=== PATIENT | female | born 1970 | race Caucasian/White ===

== ENCOUNTER → 2018-03-22 12:19 | Outpatient (CLI) | payer OTHER, SELFPAY ==
--- NOTE | 2018-03-22 12:23 | BI_ITS ---
MAMMOGRAPHY - BILATERAL SCREENING REASON FOR EXAM: Female, 47 years old. Routine annual screening examination. PERTINENT HISTORY: Non-contributory. TECHNIQUE: Digital bilateral breast samantha (3D mammographic acquisition) in the CC and MLO projections. 2-D mediolateral oblique (MLO) and craniocaudad (CC) views of both breasts were obtained. CAD: Full Field Digital Mammography with Computer Added Detection was performed. COMPARISON: Comparison made with prior study dated March 20, 2017. FINDINGS: Breast Composition: There are scattered areas of fibroglandular density. There are no dominant masses or suspicious calcifications. No other significant abnormalities are identified. There has been no significant change since the prior study. BI/SCREENING MAMM (CAD), BILAT IMPRESSION: Stable bilateral screening mammogram. Yearly follow-up mammogram recommended. (A) ASSESSMENT CATEGORY: BIRADS Category 1: Negative. A letter regarding these results will be sent to the patient by the facility within 30 days. Approximately 10% of breast cancers are not detected by mammography. A normal mammogram should not delay biopsy of a clinically suspicious abnormality. [id number] Electronically Signed: Manav Acosta MD at 14:01 EDT Tel [phone], Service support ,
== END ==
PROVIDERS: Family Provider Family Medicine; PCP Family Medicine; Visit Provider Obstetrics & Gynecology
DX: Z12.31 Encounter for screening mammogram for malignant neoplasm of breast (principal)
CPT/HCPCS: 77063; 77067

== ENCOUNTER → 2018-04-07 10:46 | Outpatient (CLI) | payer OTHER, SELFPAY ==
[2018-04-13 10:31] LABS: HPV Reflexed? NOT INDICATED
== END ==
PROVIDERS: Visit Provider Obstetrics & Gynecology
DX: Z12.4 Encounter for screening for malignant neoplasm of cervix (principal)
CPT/HCPCS: 88175; G0145

== ENCOUNTER → 2019-04-08 10:38 | Outpatient (CLI) | payer OTHER, SELFPAY ==
[2019-04-14 14:09] LABS: HPV APTIMA, High Risk Negative (Negative)
== END ==
PROVIDERS: Visit Provider Obstetrics & Gynecology
DX: Z12.4 Encounter for screening for malignant neoplasm of cervix (principal)
CPT/HCPCS: 87624; 88175; G0145

== ENCOUNTER → 2019-04-13 13:11 | Outpatient (CLI) | payer OTHER, SELFPAY ==
--- NOTE | 2019-04-13 13:13 | BI_ITS ---
MAMMOGRAPHY - BILATERAL SCREENING 3-D TOMOSYNTHESIS REASON FOR EXAM: Female, 48 years old. Bilateral Screening 3-D tomosynthesis PERTINENT HISTORY: No significant family history. TECHNIQUE: 2-D mammograms and 3-D Tomosynthesis of the breast (s) were performed. CAD was performed. COMPARISON: 03/22/2018, 03/20/2017, 03/12/2015. FINDINGS: The breast composition is composed of scattered fibroglandular density. Scattered benign calcifications are seen. No dense spiculated masses or suspicious microcalcifications are identified. No architectural distortion is identified. There is no skin thickening or retraction. There has been no significant change since the prior study. BI/SCREEN MAMM (CAD) W/SHARON BILAT IMPRESSION: No mammographic signs of malignancy. Routine yearly mammograms recommended. ASSESSMENT CATEGORY: BIRADS Category 2: Benign. A letter regarding these results will be sent to the patient by the facility within 30 days. FOLLOW UP RECOMMENDATION: Yearly follow up mammogram recommended. (A) Approximately 10% of breast cancers are not detected by mammography. A normal mammogram should not delay biopsy of a clinically suspicious abnormality. Electronically Signed: Gunner Hua MD at 16:26 EDT Tel [phone], Service support ,
== END ==
PROVIDERS: Family Provider Family Medicine; PCP Family Medicine; Referring Provider Obstetrics & Gynecology; Visit Provider Obstetrics & Gynecology
DX: Z12.31 Encounter for screening mammogram for malignant neoplasm of breast (principal)
CPT/HCPCS: 77063; 77067

== ENCOUNTER 2019-06-27 07:37 | Day surgery (SDC) | payer OTHER, SELFPAY ==
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
[2019-06-27 08:11] VITALS: BP 109/85; PULSE 67; RESP 16; TEMP 36.9; O2SAT 99; BMI 21.8
[2019-06-27] MEDS: Lactated Ringers 1,000 ML 100 ML IV (08:19)
[2019-06-27 09:29] VITALS: BP 109/85; BP 98/73; PULSE 80; RESP 16; TEMP 36.7; O2SAT 100
--- NOTE | 2019-06-27 09:33 | OP.ENDO_ITS ---
06/27/2019 Janice [address]ner [address] [place] [address] Re : Colonoscopy procedure for Lu Cavanaugh Dear Dr. Buckner This procedure was performed on Thursday, June 27, 2019. My impressions and recommendations are as follows: Impressions : - Hemorrhoids found on perianal exam. - External and internal hemorrhoids. - The entire examined colon is normal. - No specimens collected. Recommendations : - Discharge patient to home. - Resume previous diet. - Continue present medications. - Repeat colonoscopy in 10 years for screening purposes. My findings are described in the full procedure note, which is enclosed. If I can be of further assistance, please feel free to contact me at Doctor phone number(s): , Work: . Sincerely, MD Mara Victor MD 06/27/2019 9:33:10 AM This report has been signed electronically.
[2019-06-27 09:35] VITALS: BP 103/72; BP 109/85; PULSE 72; RESP 16; O2SAT 100
[2019-06-27 09:40] VITALS: BP 109/85; BP 88/69; PULSE 69; RESP 16; O2SAT 100
[2019-06-27 09:43] VITALS: BP 105/75; BP 109/85; PULSE 65; RESP 14; TEMP 36.6; O2SAT 100
[2019-06-27 10:01] VITALS: BP 109/85
== END 2019-06-27 10:09 | disposition home or self-care (01) ==
LOC: EN 07:39 → AC 07:40
PROVIDERS: Family Provider Family Medicine; PCP Family Medicine; Referring Provider Family Medicine; Visit Provider Surgery
PROC: 0DJD8ZZ Inspection of Lower Intestinal Tract, Via Natural or Artificial Opening Endoscopic (ICD-10-PCS; CPT 45378; principal; 2019-06-27 08:55)
DX: Z12.11 Encounter for screening for malignant neoplasm of colon (principal); K64.4 Residual hemorrhoidal skin tags; K64.0 First degree hemorrhoids
CPT/HCPCS: 45378; J7120; J2405

== ENCOUNTER → 2019-10-26 09:22 | Outpatient (CLI) | payer OTHER, SELFPAY ==
--- NOTE | 2019-10-26 09:27 | BD_ITS ---
STUDY: DUAL ENERGY X-RAY ABSORPTIOMETRY / DXA REASON FOR EXAM: Female, 48 years old. [employer]- EARLY AT 41 YRS OLD -- TAKES MULTIVITAMIN AND VIT D -- DOES MODERATE AMOUNT OF EXERCISE -- FAMILY HX OF OSTEO- MOTHER, AUNTS, COUSINS -- LANI OF 1.25 INCHES TECHNIQUE: Bone Mineral Density (BMD) measurements of lumbar spine and bilateral hips were obtained. COMPARISON: None. FINDINGS: Lumbar Spine (L1-L4): g/cm2 (1.000) / T-score (-1.5) / Z-score (-1.0) Findings are suggestive of osteopenia with a moderate fracture risk. Left Femur Total: g/cm2 (0.943) / T-score (-0.5) / Z-score (0.0) Left Femoral Neck: g/cm2 (0.931) / T-score (-0.8) / Z-score (0.1) Right Femur Total: g/cm2 (0.950) / T-score (-0.5) / Z-score (0.0) Right Femoral Neck: g/cm2 (0.907) / T-score (-0.9) / Z-score (-0.1) BD/Dexa Bone Density Study IMPRESSION: The patient is considered normal as outlined below according to World Manuel Organization (WHO) criteria with a low fracture risk. Reference Information: The T-score is the number of standard deviations above or below the standard which is normal for young adults at their peak bone mineral density. The World Health Organization (WHO) interprets the T-scores as follows: Above -1 Normal bone density Between -1 and -2.5 Osteopenia Equal to / or below -2.5 Osteoporosis As a practical clinical guideline, osteopenia may be graded as follows: Mild -1 through -1.5 Moderate -1.6 through -2.0 Severe -2.1 through -2.4 The Z-score is the number of standard deviations above or below age-matched controls. A Z-score of less than -1.5 would be considered abnormal. References: 1. NIH Osteoporosis and Related Bone Diseases http://www.osteo.org 2. International Society for Clinical Densitometry http://www.iscd.org 3. National Osteoporosis Foundation http://www.nof.org Electronically Signed: Manav Acosta, at 13:31 EST , Service support ,
== END ==
PROVIDERS: PCP Family Medicine; Referring Provider Obstetrics & Gynecology; Visit Provider Obstetrics & Gynecology
DX: Z13.820 Encounter for screening for osteoporosis (principal)
CPT/HCPCS: 77080

== ENCOUNTER → 2020-04-10 10:03 | Outpatient (CLI) | payer OTHER, SELFPAY ==
[2020-04-10 10:57] LABS: Hematocrit 37.7 % (37-47); Hemoglobin 12.4 g/dL (12.0-15.0); Mean Corp Hgb Conc 32.9 g/dL (32-36); Mean Corpuscular Volume 88.3 fL (81-99); Mean Platelet Vol. 9.9 fl (6.2-12.0); Platelet Count 282 K/mm3 (150-450); RBC Distribution Width CV 12.9 % (11.6-14.6); RBC Distribution Width SD 41.3 fl (35.1-43.9); Red Blood Count 4.27 M/mm3 (4.2-5.4); White Blood Count 5.3 K/mm3 (4.4-11.0)
[2020-04-10 11:34] LABS: Hemoglobin A1c 5.4 % (3.8-5.6)
[2020-04-10 11:38] LABS: ALB/GLOB Ratio 1.1 RATIO (0.9-2.4); AST(SGOT) 28 U/L (15-37); Alanine Aminotransfer ALT/SGPT 40 U/L (13-56); Albumin, Serum 3.9 g/dL (3.2-5.0); Alkaline Phosphatase 63 U/L (45-117); Anion Gap 3 (5-15); BUN 16 mg/dL (7-18); BUN/Creat Ratio 19.4 RATIO (10-20); Calcium,Total 8.8 mg/dL (8.5-10.1); Chloride 104 mmol/L (98-107); Cholesterol 218 mg/dL (200); Creatinine, Serum 0.83 mg/dL (0.55-1.02); EST Glomerular Filtration Rate 77 mL/min (>60); Est Glom Filt Rate - Afr Amer 94 mL/min (>60); Globulin 3.5 g/dL (2.2-4.2); Glucose 74 mg/dL (74-106); High Density Lipoprotein 59 mg/dL; Protein, Total 7.4 g/dL (6.4-8.2); Sodium Level 138 mmol/L (136-145); Thyroid Stim Hormone (TSH) 1.24 uIU/mL (0.358-3.74); Triglycerides 147 mg/dL; Very Low Density Lipoprotein 29 mg/dL (5-40)
== END ==
PROVIDERS: PCP Family Medicine; Visit Provider Obstetrics & Gynecology
DX: Z13.0 Encounter for screening for diseases of the blood and blood-forming organs and certain disorders involving the immune mechanism (principal); Z13.1 Encounter for screening for diabetes mellitus; Z13.220 Encounter for screening for lipoid disorders; Z12.4 Encounter for screening for malignant neoplasm of cervix
CPT/HCPCS: 36415; 80053; 80061; 83036; 84443; 85027

== ENCOUNTER → 2020-04-16 08:36 | Outpatient (CLI) | payer OTHER, SELFPAY ==
--- NOTE | 2020-04-16 08:37 | BI_ITS ---
MAMMOGRAPHY - BILATERAL SCREENING REASON FOR EXAM: Female, 49 years old. Routine annual screening examination. PERTINENT HISTORY: Non-contributory. TECHNIQUE: Digital bilateral breast sharon (3D mammographic acquisition) in the CC and MLO projections. 2-D mediolateral oblique (MLO) and craniocaudad (CC) views of both breasts were obtained. CAD: Full Field Digital Mammography with Computer Added Detection was performed. COMPARISON: Comparison is made with prior study dated 04/13/2019 and 03/22/2018. FINDINGS: Breast Composition: There are scattered areas of fibroglandular density. There are no dominant masses or suspicious calcifications. No other significant abnormalities are identified. There has been no significant change since the prior study. BI/SCREEN MAMM (CAD) W/SHARON BILAT IMPRESSION: Stable bilateral screening mammogram. Yearly follow-up mammogram recommended. (A) ASSESSMENT CATEGORY: BIRADS Category 1: Negative. A letter regarding these results will be sent to the patient by the facility within 30 days. Approximately 10% of breast cancers are not detected by mammography. A normal mammogram should not delay biopsy of a clinically suspicious abnormality. [id number] Electronically Signed: Manav Acosta, at 10:05 EDT , Service support ,
== END ==
PROVIDERS: PCP Family Medicine; Referring Provider Obstetrics & Gynecology; Visit Provider Obstetrics & Gynecology
DX: Z12.31 Encounter for screening mammogram for malignant neoplasm of breast (principal)
CPT/HCPCS: 77063; 77067

== ENCOUNTER → 2021-05-28 12:14 | Outpatient (CLI) | payer OTHER, SELFPAY ==
--- NOTE | 2021-05-28 12:18 | RAD_ITS ---
STUDY: X-RAY - LEFT TIBIA AND FIBULA REASON FOR EXAM: Female, 50 years old. TENDONITIS TECHNIQUE: 2 view(s) of the tibia and fibula were obtained. COMPARISON: None. FINDINGS: Normal visualized tibia. Normal visualized fibula. The soft tissue structures are unremarkable. RAD/Tibia & Fibula 2 Views IMPRESSION: Normal x-ray examination of the tibia and fibula. Electronically Signed: Elpidio Quiñonez MD ([place]) at 8:30 EDT , Service support ,
== END ==
PROVIDERS: PCP Family Medicine; Referring Provider Family Medicine; Visit Provider Family Medicine
DX: M65.262 Calcific tendinitis, left lower leg (principal)
CPT/HCPCS: 73590

== ENCOUNTER → 2021-05-31 08:29 | Outpatient (CLI) | payer OTHER, SELFPAY ==
--- NOTE | 2021-05-31 08:32 | BI_ITS ---
MAMMOGRAPHY - BILATERAL SCREENING 3-D TOMOSYNTHESIS REASON FOR EXAM: Female, 50 years old. SCREENING PERTINENT HISTORY: No significant family history. TECHNIQUE: 2-D mammograms and 3-D Tomosynthesis of the breast (s) were performed. CAD was performed. COMPARISON: 04/16/2020 FINDINGS: The breast composition is composed of scattered fibroglandular density. Scattered benign calcifications are seen. No dense spiculated masses or suspicious microcalcifications are identified. No architectural distortion is identified. There is no skin thickening or retraction. There has been no significant change since the prior study. BI/SCRN MAMM (CAD)W/SHARON BILAT IMPRESSION: No mammographic signs of malignancy. Routine yearly mammograms recommended. ASSESSMENT CATEGORY: BIRADS Category 1: Negative. A letter regarding these results will be sent to the patient by the facility within 30 days. FOLLOW UP RECOMMENDATION: Yearly follow up mammogram recommended. (A) Approximately 10% of breast cancers are not detected by mammography. A normal mammogram should not delay biopsy of a clinically suspicious abnormality. Electronically Signed: Drew Dean MD at 10:02 EDT Tel , Service support ,
== END ==
PROVIDERS: PCP Family Medicine; Referring Provider Obstetrics & Gynecology; Visit Provider Obstetrics & Gynecology
DX: Z12.31 Encounter for screening mammogram for malignant neoplasm of breast (principal)
CPT/HCPCS: 77063; 77067

== ENCOUNTER → 2021-06-02 | Outpatient (CLI) | payer OTHER, SELFPAY | END | disposition home or self-care (01) | PROVIDERS: PCP Family Medicine; Referring Provider Nurse Practitioner Family; Visit Provider Nurse Practitioner Family | DX: U07.1 COVID-19 (principal) | CPT/HCPCS: 87635; U0005; U0003 ==

== ENCOUNTER → 2022-10-13 | Outpatient (CLI) | payer OTHER, SELFPAY ==
--- NOTE | 2022-10-13 14:14 | RAD_ITS ---
STUDY: X-RAY - RIGHT SHOULDER REASON FOR EXAM: Female, 51 years old. Right shoulder and mid back pain after falling several months ago. TECHNIQUE: 4 view(s) of the shoulder. COMPARISON: None. FINDINGS: Normal glenohumeral articulation. Normal acromioclavicular joint. Normal acromion. There is no acute fracture, dislocation or destructive osseous pathology. Normal humeral head and visualized proximal humerus. The soft tissue structures are unremarkable. Normal visualized pulmonary apex. RAD/Shoulder min 2 Views IMPRESSION: Normal x-ray examination of the right shoulder. Electronically Signed: José Miguel Vann DO at 16:58 EST ,
--- NOTE | 2022-10-13 14:23 | RAD_ITS ---
INDICATION: fall/pain EXAMINATION/TECHNIQUE: X-RAY - XR Spine Thoracic 2 Views COMPARISON: Chest radiograph November 03, 2012 FINDINGS: VERTEBRAE: Preserved vertebral body height. No fracture. No spondylolisthesis. Preservation of the normal thoracic kyphosis. DISCS: Disc spaces are maintained. INCLUDED CHEST/ABDOMEN: No acute abnormalities. RAD/Thoracic Spine 2 Views IMPRESSION: No evidence of thoracic spinal fracture or spondylolisthesis. Electronically Signed: Maikol Rosario MD at 5:58 EST ,
== END | disposition home or self-care (01) ==
PROVIDERS: PCP Family Medicine; Referring Provider Nurse Practitioner Family; Visit Provider Nurse Practitioner Family
DX: M25.511 Pain in right shoulder (principal)
CPT/HCPCS: 72070; 73030

== ENCOUNTER 2022-11-18 14:46 | Outpatient (RCR) | payer OTHER, SELFPAY ==
--- NOTE | 2022-11-18 16:09 | HP.PTEVAL ---
Patient's Visit Information SHIVANI CLEAINNG is a 51 year old F referred to Physical Therapy by Dr. Janice Buckner MD with a diagnosis of RIGHT SHOULDER PAIN. Date of Evaluation: 11/18/22 Physical Therapist: Sohail Olivo PT, Cert MDT, OCS - Visit Plan Frequency: 1 VISIT Plan: PATIENT WAS PROVIDED WITH HEP AND PT EVAL ONLY - Subjective This 51 y/o female presents to physicals therapy for right shoulder pain. Patient has had shoulder pain 5 -6 months . Patient seen DR Buckner ,did x-rays - and recommended meloxicam. Patient located global . Aggravating activities lifting OH repetitive and ADLS . Alleviating factors mediation and rest. Pain affects sleep on right side. Patient denies paresthesia/tingling . Patient condition affects QOL and function. Patient had injury to right surgery many years. Patient had fall right side in January of last year. 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 SOCAIL: - Pain Right Shoulder Pain Intensity (Out of 10): 2 Pain Intensity Range: 10 - Objective POSTURE: mild forward posture. PALAPTION: unremarkable. NEURO: intact, denies paresthesia/tingling. AROM: shoulder flexion 160 degrees , 160 abduction ,ER 90 degrees ,IR L5. MMT: RTC 4/5 ,DELTOID 4/5 - Goals Goal 1:: Patient was provided with HEP for Right shoulder Goal Time Frame: 4-6 Weeks - Rehabilitation Potential Physical Therapy Diagnosis: Patient has right shoulder pain with functional activity above ADLS and housework task thus benefit from HEP Rehabilitation Potential: Good - Anticipated Interventions Patient/Client Instruction: Educate patient on: Condition, Plan of Care For the Purpose of:: To increase tolerance to activity/condition/position, To improve ability of physical actions for home/community/work/leisure, Other Other: HEP Therapeutic Exercise to Include: Strength training, Postural training, Scapular Strength/Stabilization Comment: RTC For the Purpose of:: To decrease pain, To increase ROM Thank you for the opportunity to evaluate your patient. For Medicare and Medicare HMO plans, please review the plan of care and approve it. It will need to be FAXED BACK to us at [phone] for Medicare purposes. For Medicare only, by signing this I certify the plan of care. Please let me know if there are questions or concerns regarding this plan of care. Physician Signature: Date:
--- NOTE | 2023-03-22 18:09 | HP.PT.NRP ---
Patient Information Patient Information: SHIVANI CLEANING was seen in my office for initial evaluation on 11/18/22. The following Plan of Care was established for this patient: POC Established Initial Frequency: 1 VISIT Anticipated Interventions Patient/Client Instruction: Educate patient on: Condition and Plan of Care For the Purpose of:: To increase tolerance to activity/condition/position, To improve ability of physical actions for home/community/work/leisure and Other Other: HEP Therapeutic Exercise to Include: Strength training, Postural training and Scapular Strength/Stabilization For the Purpose of:: To decrease pain and To increase ROM Last Seen Last Seen: This patient was last seen in our office . Pertinent comments regarding their Physical therapy will appear below: Patient was seen for initial Evaluation gómez and d/c to hep At this point I will be discontinuing this patient from physical therapy. I would be happy to see this patient again in the future if found appropriate by the physician. Thank you! Sohail Olivo, PT, Cert MDT, OCS
== END 2022-11-18 19:00 | disposition home or self-care (01) ==
LOC: PT 14:46
PROVIDERS: PCP Family Medicine; Referring Provider Family Medicine; Visit Provider Family Medicine
DX: M25.519 Pain in unspecified shoulder (principal)
CPT/HCPCS: 97110; 97161

== ENCOUNTER → 2023-04-03 | Outpatient (CLI) | payer OTHER, SELFPAY ==
[2023-04-03 10:28] LABS: Absolute Lymphocyte Count 1.17 X10^3/uL (0.83-4.51); Basophil# 0.06 X10^3/uL; Eosinophils% 1.7 % (0-5); Hematocrit 40.8 % (37-47); Hemoglobin 13.6 g/dL (12.0-15.0); Lymphocyte # 1.17 X10^3/ul (0.83-4.51); Lymphocyte % 19.7 % (19-41); Mean Corp Hgb Conc 33.3 g/dL (32-36); Mean Corpuscular Hgb 30.2 pg (27.0-32.0); Mean Corpuscular Volume 90.5 fL (81-99); Mean Platelet Vol. 9.2 fl (6.2-12.0); Monocyte# 0.58 X10^3/uL; Monocyte% 9.8 % (0-10); NRBC Flagged by Analyzer 0 % (0-5); Neutrophil # 4.02 X10^3/uL (2.7-7.7); Neutrophil % 67.6 % (47-70); Platelet Count 272 K/mm3 (150-450); RBC Distribution Width CV 11.9 % (11.6-14.6); RBC Distribution Width SD 39.6 fl (35.1-43.9); Red Blood Count 4.51 M/mm3 (4.2-5.4); White Blood Count 5.9 K/mm3 (4.4-11.0)
[2023-04-03 10:49] LABS: Hemoglobin A1c 5.3 % (3.8-5.6)
[2023-04-03 10:53] LABS: ALB/GLOB Ratio 1.1 RATIO (0.9-2.4); AST(SGOT) 25 U/L (15-37); Alanine Aminotransfer ALT/SGPT 31 U/L (13-56); Albumin, Serum 4.1 g/dL (3.2-5.0); Alkaline Phosphatase 76 U/L (45-117); Anion Gap 4 (5-15); BUN 13 mg/dL (7-18); BUN/Creat Ratio 15.8 RATIO (10-20); Calcium,Total 9.6 mg/dL (8.5-10.1); Chloride 104 mmol/L (98-107); Cholesterol 225 mg/dL (200); Creatinine, Serum 0.82 mg/dL (0.55-1.02); EST Glomerular Filtration Rate 77 mL/min (>60); Est Glom Filt Rate - Afr Amer 93 mL/min (>60); Globulin 3.7 g/dL (2.2-4.2); Glucose 84 mg/dL (74-106); High Density Lipoprotein 63 mg/dL; Potassium 3.9 mmol/L (3.5-5.1); Protein, Total 7.8 g/dL (6.4-8.2); Sodium Level 136 mmol/L (136-145); Thyroid Stim Hormone (TSH) 1.84 uIU/mL (0.358-3.74); Triglycerides 114 mg/dL; Very Low Density Lipoprotein 23 mg/dL (5-40)
[2023-04-08 17:07] LABS: HPV APTIMA, High Risk Negative (Negative)
== END | disposition home or self-care (01) ==
PROVIDERS: PCP Family Medicine; Referring Provider Obstetrics & Gynecology; Visit Provider Obstetrics & Gynecology
DX: Z12.4 Encounter for screening for malignant neoplasm of cervix (principal); Z13.220 Encounter for screening for lipoid disorders; Z13.29 Encounter for screening for other suspected endocrine disorder; Z13.0 Encounter for screening for diseases of the blood and blood-forming organs and certain disorders involving the immune mechanism; Z13.1 Encounter for screening for diabetes mellitus
CPT/HCPCS: 36415; 80053; 80061; 83036; 84443; 85025; 87624; 88175; G0145

== ENCOUNTER → 2023-04-08 | Outpatient (CLI) | payer OTHER, SELFPAY ==
--- NOTE | 2023-04-08 12:29 | BI_ITS ---
MAMMOGRAPHY - BILATERAL SCREENING REASON FOR EXAM: Female, 52 years old. Routine annual screening examination. PERTINENT HISTORY: Non-contributory. TECHNIQUE: Digital bilateral breast sharon (3D mammographic acquisition) in the CC and MLO projections. 2-D mediolateral oblique (MLO) and craniocaudad (CC) views of both breasts were obtained. CAD: Full Field Digital Mammography with Computer Added Detection was performed. COMPARISON: Comparison is made with prior studies May 31, 2021 and April 16, 2020. FINDINGS: Breast Composition: There are scattered areas of fibroglandular density. There are no dominant masses or suspicious calcifications. No other significant abnormalities are identified. There has been no significant change since the prior study. BI/SCRN MAMM (CAD)W/SHARON BILAT IMPRESSION: Stable bilateral screening mammogram. Yearly follow-up mammogram recommended. (A) ASSESSMENT CATEGORY: BIRADS Category 1: Negative. A letter regarding these results will be sent to the patient by the facility within 30 days. Approximately 10% of breast cancers are not detected by mammography. A normal mammogram should not delay biopsy of a clinically suspicious abnormality. [id number] Electronically Signed: Manav Acosta MD at 13:42 EDT ,
== END | disposition home or self-care (01) ==
LOC: OPBI 12:28
PROVIDERS: PCP Family Medicine; Referring Provider Obstetrics & Gynecology; Visit Provider Obstetrics & Gynecology
DX: Z12.31 Encounter for screening mammogram for malignant neoplasm of breast (principal)
CPT/HCPCS: 77063; 77067

== ENCOUNTER → 2023-09-10 | Outpatient (CLI) | payer OTHER, SELFPAY ==
[2023-09-10 13:04] LABS: Hepatitis B Surface Antibody Non-Reactive
[2023-09-11 06:09] LABS: V-Zoster IgG (Immunity) 2081 index (Immune >165); WCH EMP Rubeola Titer > 300.0 AU/mL (Immune >16.4)
== END | disposition home or self-care (01) ==
LOC: MFPLAB 10:54
PROVIDERS: PCP Family Medicine; Visit Provider Nurse Practitioner Family
DX: Z00.00 Encounter for general adult medical examination without abnormal findings (principal)
CPT/HCPCS: 36415; 86706; 86735; 86787

== ENCOUNTER → 2024-04-11 | Outpatient (CLI) | payer OTHER, SELFPAY ==
--- NOTE | 2024-04-11 08:16 | BI_ITS ---
MAMMOGRAPHY - BILATERAL SCREENING REASON FOR EXAM: Female, 53 years old. Routine annual screening examination. PERTINENT HISTORY: Non-contributory. TECHNIQUE: Digital bilateral breast sharon (3D mammographic acquisition) in the CC and MLO projections. 2-D mediolateral oblique (MLO) and craniocaudad (CC) views of both breasts were obtained. CAD: Full Field Digital Mammography with Computer Added Detection was performed. COMPARISON: Comparison is made with prior study April 08, 2023 and March 31, 2021. FINDINGS: Breast Composition: There are scattered areas of fibroglandular density. There are no dominant masses or suspicious calcifications. No other significant abnormalities are identified. There has been no significant change since the prior study. BI/SCRN MAMM (CAD)W/SHARON BILAT IMPRESSION: Stable bilateral screening mammogram. Yearly follow-up mammogram recommended. (A) ASSESSMENT CATEGORY: BIRADS Category 1: Negative. A letter regarding these results will be sent to the patient by the facility within 30 days. Approximately 10% of breast cancers are not detected by mammography. A normal mammogram should not delay biopsy of a clinically suspicious abnormality. [id number] Electronically Signed: Manav Acosta MD at 9:30 EDT ,
== END | disposition home or self-care (01) ==
LOC: OPBI 08:16
PROVIDERS: PCP Family Medicine; Referring Provider Obstetrics & Gynecology; Visit Provider Obstetrics & Gynecology
DX: Z12.31 Encounter for screening mammogram for malignant neoplasm of breast (principal)
CPT/HCPCS: 77063; 77067

== ENCOUNTER → 2024-05-10 | Outpatient (CLI) | payer OTHER, SELFPAY ==
[2024-05-10 11:37] LABS: Hemoglobin A1c 5.4 % (3.8-5.6)
[2024-05-10 11:52] LABS: Vitamin D,25 Hydroxy 30.9 ng/mL
[2024-05-10 11:58] LABS: Cholesterol 268 mg/dL (200); High Density Lipoprotein 82 mg/dL; Triglycerides 114 mg/dL; Very Low Density Lipoprotein 23 mg/dL (5-40)
== END | disposition home or self-care (01) ==
LOC: LAB 10:41
PROVIDERS: PCP Family Medicine; Referring Provider Obstetrics & Gynecology; Visit Provider Obstetrics & Gynecology
DX: Z13.1 Encounter for screening for diabetes mellitus (principal); Z13.220 Encounter for screening for lipoid disorders; Z13.21 Encounter for screening for nutritional disorder; Z13.29 Encounter for screening for other suspected endocrine disorder
CPT/HCPCS: 36415; 80061; 82306; 83036; 84443

== ENCOUNTER → 2024-05-13 | Outpatient (CLI) | payer OTHER, SELFPAY ==
[2024-05-13 08:50] LABS: T4 Free Direct 0.79 ng/dL (0.76-1.46)
--- NOTE | 2024-05-13 16:22 | US_ITS ---
STUDY: THYROID ULTRASOUND REASON FOR EXAM: Female, 53 years old. high TSH TECHNIQUE: Ultrasound evaluation of the thyroid was performed with real-time and static curran-scale imaging. COMPARISON: None. FINDINGS: RIGHT LOBE: The right lobe of the thyroid gland measures 4.1 x 1.2 x 1.4 cm. There is a heterogeneous echotexture. There are no demonstrated solid, cystic or complex lesions. LEFT LOBE: The left lobe of the thyroid gland measures 5.0 x 1.3 x 1.1 cm. There is a heterogeneous echotexture. Nodule 1:8 x 6 x 6 mm solid isoechoic wider than tall smoothly marginated nodule with no echogenic foci (TR 3) in the mid left lobe consistent with an adenoma. Nodule 2:7 x 6 x 5 mm solid isoechoic wider than tall ill-defined margin nodule with no echogenic foci (TR 3) in the inferior left lobe consistent with an adenoma. ISTHMUS: The isthmus measures 2 mm thick. . The regional lymph nodes are normal. US/Thyroid IMPRESSION: Thyroiditis with small adenomas. Electronically Signed: Drew Dean MD at 20:02 EDT ,
== END | disposition home or self-care (01) ==
PROVIDERS: PCP Family Medicine; Referring Provider Obstetrics & Gynecology; Visit Provider Obstetrics & Gynecology
DX: R94.6 Abnormal results of thyroid function studies (principal)
CPT/HCPCS: 36415; 76536; 84439

== ENCOUNTER → 2024-06-21 | Outpatient (CLI) | payer OTHER, SELFPAY ==
[2024-06-21 15:08] LABS: T4 Total, Thyroxin 9.9 ug/dL (4.8-13.9)
[2024-06-23 04:08] LABS: Thyroid Peroxidase AB 135 IU/mL (0-34)
== END | disposition home or self-care (01) ==
LOC: LAB 14:02
PROVIDERS: PCP Family Medicine; Referring Provider Surgery; Visit Provider Surgery
DX: E04.1 Nontoxic single thyroid nodule (principal); D34 Benign neoplasm of thyroid gland
CPT/HCPCS: 36415; 84436; 84443; 84481; 86376

== ENCOUNTER → 2024-07-19 | Outpatient (CLI) | payer OTHER, SELFPAY ==
--- NOTE | 2024-07-19 10:14 | RAD_ITS ---
STUDY: X-RAY - LEFT SHOULDER REASON FOR EXAM: Female, 53 years old. pain, fall TECHNIQUE: 4 view(s) of the shoulder. COMPARISON: October 13 2022 left shoulder FINDINGS: Normal glenohumeral articulation. Normal acromioclavicular joint. Normal acromion. Normal humeral head and visualized proximal humerus. The soft tissue structures are unremarkable. Normal visualized pulmonary apex. RAD/Shoulder min 2 Views IMPRESSION: Normal x-ray examination of the shoulder. Electronically Signed: Sea Montano MD at 0:25 EST ,
--- NOTE | 2024-07-19 10:14 | RAD_ITS ---
STUDY: X-RAY - UNILATERAL RIBS ( LEFT ) REASON FOR EXAM: Female, 53 years old. pain TECHNIQUE: 4 view(s) of the ribs. COMPARISON: None. FINDINGS: Normal visualized ribs without a demonstrated fracture. The visualized lung is clear and expanded. RAD/Ribs Unil 2V No CXR IMPRESSION: Normal x-ray examination of the ribs. Electronically Signed: Sea Montano MD at 0:30 EST ,
--- NOTE | 2024-07-19 10:36 | RAD_ITS ---
STUDY: X-RAY CHEST REASON FOR EXAM: Female, 53 years old. fall left side chest pain TECHNIQUE: Frontal and lateral views of the chest. COMPARISON: November 03, 2012 FINDINGS: Lungs are hyperaerated. Right lower lobe infiltrate. There is no demonstrated pleural abnormality. Normal size heart. Normal mediastinum and carlee. Normal visualized pulmonary arteries. Normal visualized aortic arch and descending thoracic aorta. Normal visualized thoracic spine. Normal visualized ribs, clavicles, and shoulders. There is no demonstrated abnormality of the visualized soft tissue structures of the upper abdomen. RAD/Chest PA and Lateral IMPRESSION: Right lower lobe infiltrate. COPD. Electronically Signed: Sea Montano MD at 0:27 EST ,
== END | disposition home or self-care (01) ==
LOC: MTRAD 10:14
PROVIDERS: PCP Family Medicine; Referring Provider Family Medicine; Visit Provider Family Medicine
DX: M79.602 Pain in left arm (principal); R07.81 Pleurodynia; R07.89 Other chest pain; W19.XXXA Unspecified fall, initial encounter
CPT/HCPCS: 71046; 71100; 73030

== ENCOUNTER → 2024-08-01 | Outpatient (CLI) | payer OTHER, SELFPAY ==
--- NOTE | 2024-08-01 09:54 | RAD_ITS ---
EXAM: XR CHEST, 2 VIEWS CLINICAL INDICATION: RLL infiltrate TECHNIQUE: Frontal and lateral views of the chest. COMPARISON: 07/19/2024 FINDINGS: LUNGS AND PLEURAL SPACES: Unremarkable. No consolidation or edema. No pneumothorax. No effusion. HEART: Unremarkable. Cardiac silhouette not enlarged. MEDIASTINUM: Central airways and mediastinal contour are unremarkable. BONES/JOINTS: Unremarkable. No acute fracture. SOFT TISSUES: Unremarkable. RAD/Chest PA and Lateral IMPRESSION: No radiographic evidence of acute cardiopulmonary disease. Electronically Signed: Saturnino Villegas MD at 18:42 EST ,
== END | disposition home or self-care (01) ==
LOC: MTRAD 09:54
PROVIDERS: PCP Family Medicine; Referring Provider Family Medicine; Visit Provider Family Medicine
DX: J98.4 Other disorders of lung (principal)
CPT/HCPCS: 71046

== ENCOUNTER → 2025-01-19 | Outpatient (CLI) | payer OTHER, SELFPAY ==
[2025-01-20 18:08] LABS: Thyroglobulin Antibody 1.7 IU/mL (0.0-0.9); Thyroid Peroxidase AB 10 IU/mL (0-34)
== END | disposition home or self-care (01) ==
LOC: LAB 12:05
PROVIDERS: PCP Family Medicine; Referring Provider Surgery; Visit Provider Surgery
DX: E04.1 Nontoxic single thyroid nodule (principal)
CPT/HCPCS: 36415; 84439; 84443; 84481; 86376; 86800

== ENCOUNTER → 2025-05-08 | Outpatient (CLI) | payer OTHER, SELFPAY ==
--- NOTE | 2025-05-08 12:00 | BI_ITS ---
EXAM: SCRN MAMM (CAD)W/SHARON BILAT DATE: 05/08/2025 CLINICAL HISTORY: F, Age 54 y/o , BREAST CANCER SCREENING TECHNIQUE: Procedure Code: [id number] Modality: MG Procedure: SCRN MAMM (CAD)W/SHARON BILAT COMPARISON: Prior exam(s) dated 04/11/2024 and 04/08/2023. FINDINGS: TISSUE DENSITY: There are scattered areas of fibroglandular density. Bilateral Breast Mammographic Findings: No significant masses, calcifications or other abnormalities are identified. Benign-appearing round microcalcifications are seen in both breasts. BI/SCRN MAMM (CAD)W/SHARON BILAT IMPRESSION: OVERALL FINAL ASSESSMENT BI-RADS 2: BENIGN RECOMMENDATION: Routine annual follow-up in 1 Year A letter with findings and recommendations will be mailed to the patient. Reading Location: [id number]
--- OUTSIDE RECORDS SUMMARY | 2025-05-08 22:14 | XMS RPT_ITS | CCD ---
Author Organization [facility] Care Team Providers Care Pairer Substandard Name Role Phone Dr. Janice Buckner Primary Care Provider [phone] Dr. Janice Buckner Referring Provider Dr. Ami Araya Attending Provider Sita BOND, Dr. Janice Santizo Primary Care Provider [phone] Opal BOND, Dr. Maldonado Attending Provider Opal BOND, Dr. Maldonado Referring Provider Ami Araya Attending Unavailable Ami Araya Referring Unavailable Jolliff, Janice S Primary Care Unavailable Joel Joseph Referring Unavailable Jolliff, Janice S Primary Care Unavailable Joel Joseph Attending Unavailable Opal, Joel Attending Unavailable Jolliff, Janice S Primary Care Unavailable Jolliff, Janice S Referring Unavailable Jolliff, Janice S Primary Care Unavailable Jolliff, Janice S Attending Unavailable Jolliff, Janice S Referring Unavailable Jolliff, Janice S Primary Care Unavailable Jolliff, Janice S Attending Unavailable Jolliff, Janice S Referring Unavailable Ami Araya Attending Unavailable Ami Araya Referring Unavailable Joel Joseph Attending Unavailable Zeinalliff, Janice S Primary Care Unavailable Joel Joseph Referring Unavailable Ami Araya Attending Unavailable Ami Araya Referring Unavailable Jolliff, Janice S Primary Care Unavailable Allergies Allergy Classification Reported Allergen(s) Allergy Type Date of Onset Reaction(s) Facility (5 sources) Latex Allergy to substance 06-27-2019 Rash [facility] (1 source) Latex Drug allergy (disorder) 06-07-2024 [facility] Repository Medications Current Medications Medication Drug Class(es) Dates Sig (Normalized) Sig (Original) [id number] 200 actuat albuterol 0.09 mg/actuat metered dose inhaler (1 source) beta2-Adrenergic Agonist Start: 06-21-2024 Albuterol Sulfate 90 mcg/actuation HFA aerosol inhaler Active INHALATION June 21, 2024 12:00am mecobalamin (1 source) Start: 05-03-2024 Mecobalamin (Vitamin B12) 500 mcg tablet,chewable Active ug PO DAILY as needed May 03, 2024 12:00am Vit U-K3-Fakvxhnsukbyx- Vit K 2,000 unit- 2,000 mcg/mL liquid (1 source) Start: 05-03-2024 take 1 mL by mouth once daily Vit E-Q2-Hmxeqljkjsqct -Vit K 2,000 unit- 2,000 mcg/mL liquid Active 0.5 mL PO daily May 03, 2024 12:00am Completed/Discontinued Medications Medication Drug Class(es) Dates Sig (Normalized) Sig (Original) spironolactone 50 mg oral tablet (16 sources) Aldosterone Antagonist Start: 06-23-2019 End: 05-03-2024 take 1 tablet by mouth once daily Spironolactone 50 mg tablet Discontinued 0 .ROUTE .COMPLEX April 29, 2023 1:40pm May 03, 2024 1:23pm TAKE 1 TABLET BY MOUTH EVERY DAY Start: 06-23-2019 End: 04-03-2023 take 2 tablets by mouth once daily Spironolactone 50 MG tablet Discontinued 100 mg PO DAILY June 23, 2019 12:00am April 03, 2023 9:08am Start: 06-23-2019 End: 04-03-2023 take 100 mg by mouth once daily Spironolactone Discontinued 100 MG PO DAILY June 22, 2019 11:00pm April 03, 2023 8:08am Problems Active Problems Problem Classification Problem Date Documented Date Episodic/Chronic Immunizations and screening for infectious disease (5 sources) Patient encounter status; Translations: [Encounter for screening for COVID-19] 06-02-2021 Episodic Other and unspecified benign neoplasm (1 source) Thyroid adenoma; Translations: [Benign neoplasm of thyroid gland] 05-17-2024 Episodic Other lower respiratory disease (10 sources) Cough; Translations: [Cough] 06-02-2021 Episodic Other screening for suspected conditions (not mental disorders or infectious disease) (4 sources) Thyroid hormone tests abnormal; Translations: [Other specified abnormal findings of blood chemistry] Onset: 06-02-2024 05-10-2024 Episodic Thyroid disorders (2 sources) Thyroid nodule; Translations: [Nontoxic single thyroid nodule] Onset: 01-24-2025 06-23-2024 Chronic Comment on above: Patient is a 53-year -old female, hypothyroid from an endocrine standpoint, who presents for evaluation of small subcentimeter thyroid nodules. She provides a history that is unconvincing for symptoms related to compressive phenomenon. It is of note that patient has recently hypothyroid with prior normal TSH levels in recent years. There is also noted that her ultrasound was read by radiology as consistent with thyroiditis. I had a lengthy conversation with and Mrs. Cleaningroll tender describing the way in which thyroiditis can contribute to abnormal thyroid function and how this should be considered self-limited. I also discussed that there is not a consensus regarding treatment for thyroiditis associated hypothyroidism unless the TSH exceeds 10. I then went on to describe that patient's thyroid nodules are quite small and unconcerning from a sonographic appearance. I do not palpate them on exam. With their small size and benign appearance I do not recommend biopsy. However, given patient's significantly elevated TSH I recommended repeating this study to see if it is trending favorably. I also shared that it was of lower likelihood this represented Juju's thyroiditis given the appearance of patient's gland and the acuity with which she appears to have shown hypothyroidism but stated we could check for anti-TPO antibodies. Mrs. Cleaning requested that we go through with this recommendation so this will be ordered as well. Past or Other Problems Problem Classification Problem Date Documented Da te Episodic/Chronic Other connective tissue disease (1 source) Pain in left arm; Translations: [Pain in left arm] Onset: 08-14-2024 Episodic Other lower respiratory disease (1 source) Other disorders of lung; Translations: [Other disorders of lung] Onset: 08-30-2024 Episodic Results Test Name Value Interpretation Reference Range Facility Thyroid Antibodieson 025 TG AB 1.7 IU/mL High 0.0-0.9 [facility] Comment on above: Result Comment: Thyr oglobulin Antibody measured by [employer] Method[employer] It should be noted that the presence of thyroglobulin antibodies may not be pathogenic nor diagnostic, especially at very low levels. The assay belt back operator has found that four percent of individuals without evidence of thyroid disease or autoimmunity will have positive TgAb levels up to 4 IU/mL. Performed at: [address] [id number] Drink Box Mechanic: Rosendo Tripp PhD, Phone: [phone] Performed By: #### L 500.4100, L501.9985, L501.9520, L506.1000 #### [facility] [address] [facility] [facility] [address] THYR PEROX AB 10 IU/mL Normal 0-34 [facility] Comment on above: Performed By: #### L 500.4100, L501.9985, L501.9520, L506.1000 #### [facility] [address] [facility] [facility] [address] Free T3on 01-19-2025 Free T3 [Mass/Vol] 3.0 pg/mL Normal 2.18-3.98 [facility] Comment on above: Performed By: #### L 500.4100, L501.9985, L501.9520, L506.1000 #### [facility] [address] [place], [address] Free I8Outivtg By: Joel nolen on 01-19-2025 Free T3 [Mass/Vol] 3.0 pg/mL 2.18-3.98 [facility] Serum or plasma thyroperoxid ase antibody assay (units/volume)Ordered By: Joel Joseph on 01-19-2025 TPO Ab Qn 10 [IU]/mL 0-34 [facility] T4 Free Directon 01-19-2025 T4 FREE DIRECT 1.20 ng/dL Normal 0.76-1.46 [facility] Comment on above: Performed By: #### L 500.4100, L501.9985, L501.9520, L506.1000 #### [facility] [address] [place], [place], [id number] T4 freeOrdered By: Joel nolen on 01-19-2025 Free T4 [Mass/Vol] 1.20 ng/dL 0.76-1.46 [facility] TSH DL <= 0.005 mIU/L QnOrde red By: Joel Joseph on 01-19-2025 TSH Qn 3.120 uIU/mL 0.300-4.200 [facility] Thyroid Stim Hormone (TSH)on 01-19-2025 TSH 3.120 uIU/mL Normal 0.300-4.200 [facility] Comment on above: Performed By: #### L 500.4100, L501.9985, L501.9520, L506.1000 #### [facility] [address] [facility] [place], [address] Chest PA and Lateralon 08-01 Chest PA and Lateral [facility] [address] [place], [place] [address] Chest PA and Lateral MR#: [id number] Acct: [id number] Name: SHIVANI CLEANING Rep #: [id number] : 1970 F 53 From: Saturnino Villegas MD PCP: Dr. Janice Buckner MD Status: REG CLI Study: Chest PA and Lateral Date of Exam: 08/01/24 Exam# [id number] Ordering Dr: Janice Buckner MD [id number] EXAM: XR CHEST, 2 VIEWS CLINICAL INDICATION: RLL infiltrate TECHNIQUE: Frontal and lateral views of the chest. COMPARISON: 07/19/2024 FINDINGS: LUNGS AND PLEURAL SPACES: Unremarkable. No consolidation or edema. No pneumothorax. No effusion. HEART: Unremarkable. Cardiac silhouette not enlarged. MEDIASTINUM: Central airways and mediastinal contour are unremarkable. BONES/JOINTS: Unremarkable. No acute fracture. SOFT TISSUES: Unremarkable. RAD/Chest PA and Lateral IMPRESSION: No radiographic evidence of acute cardiopulmonary disease. Electronically Signed: Saturnino Villegas MD at 18:42 EST , CC: Dr. Janice Buckner MD Sausage Tier: Signed Normal [facility] Chest PA and Lateralon 07-19 Chest PA and Lateral [facility] [address] [place] [address] Chest PA and Lateral MR#: [id number] Acct: [id number] Name: SHIVANI CLEANING Rep #: [id number] : 1970 F 53 From: Sea Echevarria PCP: Dr. Janice Buckner MD Status: REG CLI Study: Chest PA and Lateral Date of Exam: 07/19/24 Exam# [id number] Ordering Dr: Janice Buckner MD [id number] STUDY: X-RAY CHEST REASON FOR EXAM: Female, 53 years old. fall left side chest pain TECHNIQUE: Frontal and lateral views of the chest. COMPARISON: November 03, 2012 FINDINGS: Lungs are hyperaerated. Right lower lobe infiltrate. There is no demonstrated pleural abnormality. Normal size heart. Normal mediastinum and carlee. Normal visualized pulmonary arteries. Normal visualized aortic arch and descending thoracic aorta. Normal visualized thoracic spine. Normal visualized ribs, clavicles, and shoulders. There is no demonstrated abnormality of the visualized soft tissue structures of the upper abdomen. RAD/Chest PA and Lateral IMPRESSION: Right lower lobe infiltrate. COPD. Electronically Signed: Sea Montano MD at 0:27 EST , CC: Dr. Janice Buckner MD Sausage Tier: Signed Normal [facility] Ribs Unil 2V No CXRon 2023 Ribs Unil 2V No CXR [facility] [address] [place], [place] [address] Ribs Unil 2V No CXR MR#: [id number] Acct: [id number] Name: SHIVANI CLEANING Rep #: [id number] : 1970 F 53 From: Sea Echevarria PCP: Dr. Janice Buckner MD Status: [facility] Study: Ribs Unil 2V No CXR Date of Exam: 07/19/24 Exam# [id number] Ordering Dr: Janice Buckner MD [id number] STUDY: X-RAY - UNILATERAL RIBS ( LEFT ) REASON FOR EXAM: Female, 53 years old. pain TECHNIQUE: 4 view(s) of the ribs. COMPARISON: None. FINDINGS: Normal visualized ribs without a demonstrated fracture. The visualized lung is clear and expanded. RAD/Ribs Unil 2V No CXR IMPRESSION: Normal x-ray examination of the ribs. Electronically Signed: Sea Montano MD at 0:30 EST , CC: Dr. Janice Buckner MD Sausage Tier: Signed Normal [facility] Shoulder min 2 Viewson 07-19 Shoulder min 2 Views [facility] [address] [place], [place] [id number] Shoulder min 2 Views MR#: [id number] Acct: [id number] Name: SHIVANI CLEANING Rep #: [id number] : 1970 F 53 From: Sea Echevarria PCP: Dr. Janice Buckner MD Status: REG CLI Study: Shoulder min 2 Views Date of Exam: 07/19/24 Exam# [id number] Ordering Dr: Janice Buckner MD [id number] STUDY: X-RAY - LEFT SHOULDER REASON FOR EXAM: Female, 53 years old. pain, fall TECHNIQUE: 4 view(s) of the shoulder. COMPARISON: October 13 2022 left shoulder FINDINGS: Normal glenohumeral articulation. Normal acromioclavicular joint. Normal acromion. Normal humeral head and visualized proximal humerus. The soft tissue structures are unremarkable. Normal visualized pulmonary apex. RAD/Shoulder min 2 Views IMPRESSION: Normal x-ray examination of the shoulder. Electronically Signed: Sea Montano MD at 0:25 EST , CC: Dr. Janice Buckner MD Sausage Tier: Signed Normal [facility] Thyroid Peroxidase ABon 10-3 THYR PEROX AB 135 IU/mL High 0-34 [facility] Comment on above: Result Comment: Perf ormed at: - [facility] [address] [id number] Drink Box Mechanic: Rosendo Tripp PhD, Phone: [phone] Performed By: #### L 500.9662, L523.6705, L501.6181, L506.1000 #### [facility] [place], [address] Free T3on 06-21-2024 Free T3 [Mass/Vol] 3.0 pg/mL Normal 2.18-3.98 [facility] Comment on above: Performed By: #### L 500.4100, L501.9985, L501.9520, L506.1000 #### [facility] [address] [place], [place], [address] Surgery Visit Reporton 06-21 Surgery Visit Report [facility] [address] [place] [address] OFFICE VISIT Date of Service: 06/21/24 MR#: [id number] Acct: [id number] Name: SHIVANI CLEANING Rep #: [id number] : 1970 Provider: Dr. Joel douglas MD Age/Sex: 53/F Location: [facility] Status: Signed Intake Vital Signs 05/03/24 13:27 06/07/24 13:16 06/21/24 12:49 Height 5 ft 4.75 in 5 ft 4 in 5 ft 4 in Weight: 134 lb 6 oz 135 lb BMI 23.1 23.1 BP 150/90 H 139/95 H Blood Pressure Location Rt brachial Lt brachial Position Sitting Sitting Respiration 18 18 Pulse 77 72 Pulse Source Monitor Monitor Temp 97.2 F L 97.3 F L Temp Source Temporal Temporal Pulse Oximetry (%) 99 99 Oxygen Delivery Method room air room air Intake Visit Reasons: THYROID NODULE Chief Complaint: thyroid nodule Accompanied by: Is patient in pain?: No Allergies latex Allergy (Verified 06/07/24 13:17) Rash Medications ???Medication ???Instructions ???Recorded ???Confirmed ???Type mecobalamin (vitamin B12) 500 mcg mcg PO DAILY PRN 05/03/24 05/03/24 History chewable tablet vit A-vit D3 2,000 0.5 ml PO QDAY 05/03/24 05/03/24 History tanx-jljbfhadnpatk-ls t K 2,000 mcg/mL oral liquid albuterol sulfate 90 mcg/actuation inhalation 06/21/24 06/21/24 History aerosol inhaler PFS Medical History Thyroid nodule Pelvic floor dysfunction in female Surgical History History of cholecystectomy H/O hemorrhoidectomy Family History Father Diabetes Mother Hypertension Brother Diabetes Social History adopted: No household members: spouse number of children: 3 current occupational exposures/hazards: No pets and animals: Yes (farmers ) history of recent travel: No sexually active: Yes Smoking Status: Never smoker alcohol intake: current alcohol intake frequency: holidays/special occasions only substance use type: does not use seatbelt use: always do you feel safe at home: Yes additional social history: Spouse - Lorenzo (owns [employer] HPI HPI HPI: Patient is a 53-year-old female who presents for evaluation of thyroid nodularity. They are referred for surgical consultation from Dr. Buckner. This was discovered incidentally after blood work showed new evidence of hypothyroidism and an ultrasound was obtained. Patient offhandedly comments that she was unaware of the hypothyroidism but would have suspected hyperthyroidism. When asked to explain this, and further she states that this was simply her feeling. They do not experience difficulty with swallowing. They do not complain of a new cough. They do appreciate new voice changes, but shared they had explained these away as being related to allergies as she has noted some associated drainage (especially when lying down). They do not have a history of snoring/sleep apnea. Additionally, their weight has been stable and they do not have a history of weight gain/loss or an inability to lose despite intentional effort. There has been a history of recent fatigue???patient explains that she is used to a go go schedule and finds herself becoming quite fatigued in the afternoons. She also acknowledges some poor sleep quality as she awakens early in the morning and cannot find her way back to sleep easily. They do have a history of general cold intolerance and she describes, specifically, an experience where she went to [facility], [place] and had an inability regulating her temperature from the extreme heat to the cool air conditioning. Other symptoms include: Some menopause?Related sweating and some constipation. They do not have a family history of thyroid disorders or endocrinopathies. There is no history of prior radiation exposure. Previous work-up has included thyroid ultrasound. This study was performed on 05/13/2024 and showed a right thyroid lobe measuring 4.1 x 1.2 x 1.4 cm. Within this lobe radiology identified no nodules.. The left thyroid lobe measured 5.0 x 1.3 x 1.1 cm. Within this lobe radiology identified a nodule measuring 0.8 x 0.6 x 0.6 cm with a, solid, isoechoic, wider than tall, smoothly marginated, and absence of echogenic foci appearance rated a TI-RADS 3 and considered consistent with an adenoma as well as a second nodule measuring 0.7 x 0.6 x 0.5 cm with a solid, isoechoic, wider than tall, ill-defined margin, and absence of echogenic foci???also rated a TI-RADS 3 and considered consistent with an adenoma. An FNA has not been recommended nor been performed. Other tests include: TSH: 8.56 (05/10/2024) ROS G (more content not included)... Normal [facility] T4 Total, Thyroxinon 024 T4 [Mass/Vol] 9.9 ug/dL Normal 4.8-13.9 [facility] Comment on above: Performed By: #### L 500.4100, L501.9985, L501.9520, L506.1000 #### [facility] [address] [facility], [address] Thyroid Stim Hormone (TSH)on 06-21-2024 TSH 6.090 uIU/mL High 0.358-3.740 [facility] Comment on above: Performed By: #### L 500.4100, L501.9985, L501.9520, L506.1000 #### [facility] [address], [address] T4 Free Directon 05-13-2024 T4 FREE DIRECT 0.79 ng/dL Normal 0.76-1.46 [facility] Comment on above: Performed By: #### L 506.0400 #### [facility] [address] [place], [place], [address] Thyroidon 05-13-2024 Thyroid [facility] [address] [place] [address] Thyroid MR#: [id number] Acct: [id number] Name: SHIVANI CLEANING Rep #: [id number] : 1970 F 53 From: Drew Dean MD PCP: Dr. Janice Buckner MD Status: [facility] CLI Study: Thyroid Date of Exam: 05/13/24 Exam# [id number] Ordering Dr: Ami Araya [id number] STUDY: THYROID ULTRASOUND REASON FOR EXAM: Female, 53 years old. high TSH TECHNIQUE: Ultrasound evaluation of the thyroid was performed with real-time and static curran-scale imaging. COMPARISON: None. FINDINGS: RIGHT LOBE: The right lobe of the thyroid gland measures 4.1 x 1.2 x 1.4 cm. There is a heterogeneous echotexture. There are no demonstrated solid, cystic or complex lesions. LEFT LOBE: The left lobe of the thyroid gland measures 5.0 x 1.3 x 1.1 cm. There is a heterogeneous echotexture. Nodule 1:8 x 6 x 6 mm solid isoechoic wider than tall smoothly marginated nodule with no echogenic foci (TR 3) in the mid left lobe consistent with an adenoma. Nodule 2:7 x 6 x 5 mm solid isoechoic wider than tall ill-defined margin nodule with no echogenic foci (TR 3) in the inferior left lobe consistent with an adenoma. ISTHMUS: The isthmus measures 2 mm thick. . The regional lymph nodes are normal. US/Thyroid IMPRESSION: Thyroiditis with small adenomas. Electronically Signed: Drew Dean MD at 20:02 EDT , CC: Dr. Janice Buckner MD; Dr. Ami Araya MD Sausage Tier: Signed Normal [facility] Hemoglobin A1con 05-10-2024 HbA1c (Bld) [Mass fraction] 5.4 % Normal 3.8-5.6 [facility] Comment on above: Result Comment: Norm al < 5.7 % Prediabetic 5.7 - 6.4 % Diabetic >or= 6.5 % Please note range changes. Performed By: #### L 500.4100, L501.9985, L501.9520, L506.1000 #### [facility] [address] [place], [address] Lipid Profileon 05-10-2024 Cholesterol [Mass/Vol] 268 mg/dL High [facility] Comment on above: Result Comment: <200 mg/dL Desirable 200-240 mg/dL Borderline >240 mg/dL High Risk Performed By: #### L 500.4100, L501.9985, L501.9520, L506.1000 #### [facility] [address] [place], [address] Cholesterol in HDL [Mass/Vol] 82 mg/dL Normal [facility] Comment on above: Result Comment: The drugs N-Acetylcysteine and Metamizole may falsely depress this assay. Reference Range HDL <40 mg/dL Low HDL Cholesterol HDL >or= 60 mg/dL High HDL Cholesterol Performed By: #### L 500.4100, L501.9985, L501.9520, L506.1000 #### [facility] [address] [place], [address] Cholesterol in LDL [Mass/Vol] 163 mg/dL High 0-130 [facility] Comment on above: Performed By: #### L 500.4100, L501.9985, L501.9520, L506.1000 #### [facility] [address] [place], [address] Cholesterol in VLDL [Mass/Vol] 23 mg/dL Normal 5-40 [facility] Comment on above: Performed By: #### L 500.4100, L501.9985, L501.9520, L506.1000 #### [facility] [address] [place], [address] Triglyceride [Mass/Vol] 114 mg/dL Normal [facility] Comment on above: Result Comment: The drugs N-Acetylcysteine and Metamizole may falsely depress this assay. Serum Triglycerides Reference Interval Normal <150 mg/dL Borderline high 150 - 199 mg/dL High 200 - 499 mg/dL Very High > or = 500 mg/dL Performed By: #### L 500.4100, L501.9985, L501.9520, L506.1000 #### [facility] [address] [place], [address] Thyroid Stim Hormone (TSH)on 05-10-2024 TSH 8.560 uIU/mL High 0.358-3.740 [facility] Comment on above: Performed By: #### L 500.4100, L501.9985, L501.9520, L506.1000 #### [facility] [address] [place], [address] Vitamin D,25 Hydroxyon 05-10 Vitamin D 25-OH 30.9 ng/mL Normal [facility] Comment on above: Result Comment: Mishel min D 25(OH) Status Range Deficiency <20 ng/mL (50nmol/L) Insufficiency 20 - 30 ng/mL (50 - 75 nmol/L) Sufficiency 30 - 100 ng/mL (75 - 250 nmol/L) Toxicity >100 ng/mL (>250 nmol/L) Performed By: #### L 500.4100, L501.9985, L501.9520, L506.1000 #### [facility] [address] [place], [address] Serum Varicella zoster virus IgG antibody assay by immunoassay (units/volume)Ordered By: Bettie Garcia on 09-10-2023 VZV IgG IA Qn (S) 2081 index Immune >165 [facility] Comment on above: Negative <135 Equivo amrit 135 - 165 Positive >165A positive result generally indicates exposure to thepathogen or administration of specific immunoglobulins,but it is not indication of active infection or stageof disease. Serum hepatitis B virus surf jess antibody IgG detectionOrdered By: Bettie Garcia on 09-10-2023 HBV surface IgG Ql (S) Non-Reactive [facility] Comment on above: Non Reactive: Incons istent with immunity less than <10 mIU/mL Reactive: Consistent with immunity greater than or equal to 10 mIU/mL Serum measles virus IgG anti body assay (units/volume)Ordered By: Bettie Garcia on 09-10-2023 MeV IgG Qn (S) > 300.0 AU/mL Immune >16.4 [facility] Comment on above: Negative <13.5 Equiv ocal 13.5 - 16.4 Positive >16.4Presence of antibodies to Rubeola is presumptive evidenceof immunity except when acute infection is suspected.Performed at: [email or web address] [id number] Director: Rosendo Tripp PhD, Phone: [phone] Serum mumps virus IgG antibo dy assay (units/volume)Ordered By: Bettie Garcia on 09-10-2023 MuV IgG Qn (S) 240.0 AU/mL Immune >10.9 [facility] Comment on above: Negative <9.0 Equivo amrit 9.0 - 10.9 Positive >10.9A positive result generally indicates past exposure toMumps virus or previous vaccination. Absolute lymphocyte countOrd ered By: Ami Araya on 04-03-2023 Lymphocytes Auto (Unsp spec) [#/Vol] 1.17 10*3/uL 0.83-4.51 [facility] Basophil percentageOrdered B y: Ami Araya on 04-03-2023 Basophils/100 WBC (Bld) 1.0 % 0-1 [facility] Bilirubin [Mass/Vol] 0.70 mg/dL 0.20-1.00 [facility] Comment on above: For patients on eltr ombopag therapy, use of [employer] [place] TBIL is not recommended. Chloride [Moles/Vol] 104 mmol/L 98-107 [facility] Cholesterol [Mass/Vol] 225 mg/dL <200 [facility] Comment on above: <200 mg/dL Desirable 200-240 mg/dL Borderline >240 mg/dL High Risk Eosinophils/100 WBC (Bld) 1.7 % 0-5 [facility] Glucose [Mass/Vol] 84 mg/dL 74-106 [facility] Neutrophils (Bld) [#/Vol] 4.0 10*3/uL 2.0-7.7 [facility] Neutrophils/100 WBC (Bld) 67.6 % 47-70 [facility] Potassium [Moles/Vol] 3.9 mmol/L 3.5-5.1 [facility] Protein [Mass/Vol] 7.8 g/dL 6.4-8.2 [facility] Sodium [Moles/Vol] 136 mmol/L 136-145 [facility] Triglyceride [Mass/Vol] 114 mg/dL <199 [facility] Comment on above: The drugs N-Acetylcy steine and Metamizole may falsely depress this assay.Serum Triglycerides Reference Interval Normal <150 mg/dL Borderline high 150 - 199 mg/dL High 200 - 499 mg/dL Very High > or = 500 mg/dL WBC (Bld) [#/Vol] 5.9 10*3/uL 4.4-11.0 [facility] Blood erythrocytes count (nu mber/volume)Ordered By: Ami Araya on 04-03-2023 RBC (Bld) [#/Vol] 4.51 10*6/uL 4.2-5.4 [facility] Blood hemoglobin measurement (mass/volume)Ordered By: Ami Araya on 04-03-2023 Hemoglobin (Bld) [Mass/Vol] 13.6 g/dL 12.0-15.0 [facility] Blood lymphocytes/100 leukoc ytesOrdered By: Ami Araya on 08-11-2023 Lymphocytes/100 WBC (Bld) 19.7 % 19-41 [facility] Blood monocytes/100 leukocyt esOrdered By: Ami Araya on 04-03-2023 Monocytes/100 WBC (Bld) 9.8 % 0-10 [facility] Blood platelet mean volumeOr dered By: Ami Araya on 04-03-2023 Platelet mean volume (Bld) [Entitic vol] 9.2 fL 6.2-12.0 [facility] Cervical or vagninal specime n microscopic examination by cytology stain (reported asOrdered By: Ami Araya on 04-03-2023 Cytology report Cyto stain Doc (Cvx/Vag) Comment . [facility] Comment on above: The Pap smear is a s creening test designed to aid in thedetection of premalignant and malignant conditions of theuterine cervix. It is not a diagnostic procedure andshould not be used as the sole means of detecting cervicalcancer. Both false-positive and false-negative reports dooccur. Detection in cervical specim en of any of human papilloma virus (HPV) 16, 18, 31, 33,Ordered By: Ami Araya on 04-03-2023 HPV 16+18+31+33+35+39+45+51 +52+56+58+59+66+68 DNA Probe+sig amp Ql (Cvx) Negative Negative [facility] Comment on above: This nucleic acid am plification test detects fourteen high-risk HPV types (16,18,31,33,35,39,45,51,52,56,58,59,66,68)without differentiation. Determination of erythrocyte mean corpuscular volume (MCV)Ordered By: Ami Araya on 04-03-2023 MCV (RBC) [Entitic vol] 90.5 fL 81-99 [facility] Hematocrit Auto (Bld) [Volum e fraction]Ordered By: Ami Araya on 04-03-2023 Hematocrit (Bld) [Volume fraction] 40.8 % 37-47 [facility] Laboratory - Chemistry and C hemistry - challengeOrdered By: Ami Araya on 04-03-2023 ALP [Catalytic activity/Vol] 76 U/L 45-117 [facility] ALT [Catalytic activity/Vol] 31 U/L 13-56 [facility] CO2 [Moles/Vol] 28.0 mmol/L 21.0-32.0 [facility] Globulin (S) [Mass/Vol] 3.7 g/dL 2.2-4.2 [facility] Urea nitrogen/Creatinine [Mass ratio] 15.8 mg/mg 10-20 [facility] - CytologyOrdered By: Ami Araya on 04-03-2023 [employer] Cyto stain Nom (Cvx/Vag) [ID] Comment . [facility] Comment on above: Angelina Johnson, Cytot echnologist ([facility]) Laboratory - Hematology and Cell countsOrdered By: Ami Araya on 04-03-2023 Erythrocyte distribution width (RBC) [Entitic vol] 39.6 fL 35.1-43.9 [facility] Erythrocyte distribution width (RBC) [Ratio] 11.9 % 11.6-14.6 [facility] Immature granulocytes/100 WBC (Bld) 0.200 % 0.0-0.9 [facility] Comment on above: IG% - Immature Granu locytes (promyelocytes, myelocytes and metamyelocytes) > 1% indicates that a LEFT SHIFT is Present. MCH (RBC) [Entitic mass] 30.2 pg 27.0-32.0 [facility] Nucleated RBC/100 WBC (Bld) [Ratio] 0 % 0-5 [facility] - Miscellaneous t estsOrdered By: Ami Araya on 04-03-2023 Service comment (Unsp spec) [Interp] Comment . [facility] Comment on above: This liquid based Th inPrep(R) pap test was screened withthe use of an image guided system. Service comment (Unsp spec) [Interp] . . [facility] Liquid-based cerv Pap + CT/G C by SHANTE w reflex to high-risk HPV for ASCUSOrdered By: Ami Araya on 04-03-2023 Cytology report Cyto stain.thin prep Doc (Cvx/Vag) Comment . [facility] Comment on above: Criteria not met, HP V Genotype not performed.Performed at: [address] [id number] Director: Meg Pierce MD, Phone: [phone] at: =G - [facility] [address] [place] [id number] Director: Meg Pierce MD, Phone: [phone] [facility] Auto (RBC) [Mass/Vol]Or dered By: Ami Araya on 04-03-2023 MCHC (RBC) [Mass/Vol] 33.3 g/dL 32-36 [facility] No Panel InformationOrdered By: Ami Araya on 04-03-2023 Pathology report final diagnosis Narrative Comment . [facility] Comment on above: NEGATIVE FOR INTRAEP ITHELIAL LESION OR MALIGNANCY.CELLULAR CHANGES ASSOCIATED WITH ATROPHY ARE PRESENT. Estimated GFR (MDRD) Amer 93 mL/min >60 [facility] Comment on above: GFR Calc Estimated GFR (MDRD) Non-Af Amer 77 mL/min >60 [facility] Comment on above: Non- GFR Calc Thyroid Stimulating Hormone (TSH) 1.84 uIU/mL 0.358-3.74 [facility] Platelets bldOrdered By: Fei Araya on 04-03-2023 Platelets (Bld) [#/Vol] 272 10*3/uL 150-450 [facility] Serum or plasma albumin nita urement (mass/volume)Ordered By: Ami Araya on 04-03-2023 Albumin [Mass/Vol] 4.1 g/dL 3.2-5.0 [facility] Serum or plasma albumin/glob ulin mass ratioOrdered By: Ami Araya on 04-03-2023 Albumin/Globulin [Mass ratio] 1.1 {ratio} 0.9-2.4 [facility] Serum or plasma calcium nita urement (mass/volume)Ordered By: Ami Araya on 04-03-2023 Calcium [Mass/Vol] 9.6 mg/dL 8.5-10.1 [facility] Serum or plasma cholesterol in HDL measurement (mass/volume)Ordered By: Ami Araya on 04-03-2023 Cholesterol in HDL [Mass/Vol] 63 mg/dL >40 [facility] Comment on above: The drugs N-Acetylcy steine and Metamizole may falsely depress this assay. Reference Range HDL <40 mg/dL Low HDL Cholesterol HDL >or= 60 mg/dL High HDL Cholesterol Serum or plasma cholesterol in VLDL measurement (mass/volume)Ordered By: Ami Araya on 04-03-2023 Cholesterol in VLDL [Mass/Vol] 23 mg/dL 5-40 [facility] Serum or plasma creatinine m easurement (mass/volume)Ordered By: Ami Araya on 04-03-2023 Creatinine [Mass/Vol] 0.82 mg/dL 0.55-1.02 [facility] Comment on above: The validity of the calculated GFR & GFRAA in patients over 70 years has not been determined. Clinical correlation is essential. Serum or plasma low density lipoprotein (LDL) cholesterol measurement (mass/volume)Ordered By: Ami Araya on 04-03-2023 Cholesterol in LDL [Mass/Vol] 139 mg/dL 0-130 [facility] Serum or plasma urea nitroge n measurement (mass/volume)Ordered By: Ami Araya on 04-03-2023 Urea nitrogen [Mass/Vol] 13 mg/dL 7-18 [facility] Thin prep Papanicolaou smear with manual screeningOrdered By: Ami Araya on 04-03-2023 Thin prep Papanicolaou smear with manual screening 25 U/L 15-37 [facility] Thin prep Papanicolaou smear with manual screening 4 5-15 [facility] Whole blood hemoglobin A1c/t otal hemoglobin ratio (mass fraction)Ordered By: Ami Araya on 04-03-2023 HbA1c (Bld) [Mass fraction] 5.3 % 3.8-5.6 [facility] Comment on above: Normal < 5.7 % Predi abetic 5.7 - 6.4 % Diabetic >or= 6.5 % Please note range changes. Vital Signs Date Time Vital Sign Value Performing Clinician Haley hardy 04-03-2023 08:52-0400 Body height 164.[address] Janice Buckner Work Phone: [facility] 04-03-2023 08:41-0400 Body mass index (BMI) [Ratio] 21.7 kg/m2 Dr. Janice Buckner Work Phone: [facility] 04-03-2023 08:41-0400 Body weight 59.[address] Janice Buckner Work Phone: [facility] 04-03-2023 08:41-0400 Diastolic blood pressure 83 mm[Hg] Dr. Janice Buckner Work Phone: [facility] 04-03-2023 08:41-0400 Systolic blood pressure 113 mm[Hg] Dr. Janice Buckner Work Phone: [facility] Encounters Encounter Date Encounter Type Care Provider Facility Start: 05-08-2025 ambulatory Ami Araya Faci lity:[facility] Start: 01-19-2025 End: 01-19-[address] Janice Buckner MD Work Phone: [facility] Work Phone: Start: 01-19-2025 End: 01-19-[address] Joel Joseph MD -Laboratory Work Phone: Start: 01-19-2025 End: 01-19-2025 ambulatory Joel Joseph Facility:[facility] Start: 08-01-2024 End: 08-01-2024 ambulatory Janice Buckner Facility:[facility] Start: 07-19-2024 End: 07-19-2024 ambulatory Janice Buckner Facility:[facility] Start: 06-21-2024 End: 06-21-2024 ambulatory Joel Joseph Facility:[facility] Start: 06-21-2024 End: 06-21-2024 ambulatory Joel Joseph Facility:[facility] Start: 05-13-2024 End: 05-13-2024 ambulatory Ami Araya Facility:[facility] Start: 05-10-2024 End: 05-10-2024 ambulatory Ami Araya Facility:[facility] Start: 09-10-2023 End: 09-10-2023 ambulatory [facility] Work Phone: Start: 09-10-2023 End: 09-10-2023 Patient encounter procedure [facility] Start: 04-08-2023 End: 04-08-[address] Janice Buckner Work Phone: [facility] Work Phone: Start: 04-08-2023 End: 04-08-[address] Janice Buckner Work Phone: [facility] Work Phone: Start: 04-03-2023 End: 04-03-[address] Janice Buckner Work Phone: [facility] Work Phone: Start: 04-03-2023 End: 04-03-[address] Janice Buckner Work Phone: [facility] Start: 04-03-2023 End: 04-03-[address] Janice Buckner Work Phone: [facility] Work Phone: Procedures Date Procedure Procedure Detail Performing Clinician Start: 01-19-[address] Janice Buckner MD Work Phone: Comment on above: Thyroglobulin Antibo dy measured by [employer] AnalyticsMethodologyIt should be noted that the presence of thyroglobulinantibodies may not be pathogenic nor diagnostic, especiallyat very low levels. The assay belt back operator has found thatfour percent of individuals without evidence of thyroiddisease or autoimmunity will have positive TgAb levels upto 4 IU/mL.Performed at: [address] [id number] Director: Rosendo Tripp PhD, Phone: [phone] Start: 04-08-2023 Screening mammography Wlae Buckner Work Phone: Plan of Treatment Date Care Activity Detail Author Start: 04-03-2023 Liquid based cervica l cytology screening [facility] MG Breast - bilateral Screening [facility] Path report.final Dx Spec [facility] Payers Date Payer Category Payer Self-pay [id number] 2016 Unknown [id number] Unknown [id number] 2.16.8 [id number] Unknown [id number] 2.16.8 [id number] Unknown [id number] 2.16.8 [id number] Unknown [id number] 2.16.8 [id number] Unknown [id number] 2.16.8 [id number] Unknown [id number] 2.16.8 [id number] Unknown [id number] 2.16.8 [id number] Unknown [id number] 2.16.8 [id number] Social History Date Type Detail [facility] Work Phone: Start: 1970 Sex Assigned At Female [facility] Start: 04-03-2023 End: 04-03-2023 Tobacco smoking status [facility] Unknown if ever smoked [facility] Start: 06-23-2019 Non-smoker [facility] Start: 04-03-2023 [facility]finding[facility] Clinical Note 04-03-2023 Note Date & Type Note Facility 04-03-2023 Note [facility] Pap Smear Specimen Adequacy April 03, 2023 11:05am Comment . Satisfactory for evaluation. Endocervical and/or squamous metaplasticcells (endocervical component) are present. Comment on above: Satisfactory for gwen luation. Endocervical and/or squamous metaplasticcells (endocervical component) are present. Evaluation note Note Date & Type Note Facility Evaluation note No assessment information availa ble [facility] Work Phone: Evaluation note Note Date & Type Note Facility Evaluation note Diagnosis Onset Date [id number] noneactive [facility] Work Phone: Reason for referral (narrative) Note Date & Type Note Facility Reason for referral (narrative) No reason for referral information available [facility] Work Phone: Chief Complaint and Reason for Visit Chief Complaint Annual (INFORMATION CONSULTANT) , R/S Reason for Visit [id number] Chief Complaint Annual (INFORMATION CONSULTANT) , R/S SCREENING Reason for Visit [id number] Chief Complaint Admit Date INT LAB ORDERS January 19, 2025 12:04 pm Family History No Family History Records Found Relationship Condition Age at Onset Recorded Date/T markie father Diabetes mellitus Unknown mother Hypertension Unknown brother Diabetes mellitus Unknown Advance Directives No Advanced Directives Records Found Advance Directive Response Recorded Date/ Time Living Will Yes June 23 12:07pm Power of Concrete Pump Operator Helper Yes June 23, 2019 12:07pm Advance Directive Response Recorded Date/ Time Living Will Yes June 23 11:07am Power of Concrete Pump Operator Helper Yes June 23, 2019 11:07am Summary Purpose Additional Source Comments Goals (unrecognized section and content) Goals may be documented in a n alternate sectionGoals may be documented in an alternate sectionGoals may be documented in an alternate sectionGoals may be documented in an alternate sectionGoals may be documented in an alternate section Care Teams (unrecognized sec tion and content) Team Status: Active Member Role Status Dates Dr. Janice Buckner MD Family Provider Active Dr. Janice Buckner MD Primary Care Provider Active Team Status: Inactive Member Role Status Dates Dr. Janice Buckner MD Primary Care Provider, Referrin g Provider Active Dr. Ami Araya MD Attending Provider Active Team Status: Inactive Member Role Status Dates Dr. Janice Buckner MD Primary Care Provider Active Dr. Ami Araya MD Attending Provider, Referr ing Provider Active Team Status: Inactive Member Role Status Dates Dr. Janice Buckner MD Primary Care Provider Active FADY Lind Attending Provider Active Team Status: Inactive Member Role Status Dates Dr. Janice Buckner MD Primary Care Provider Active Start: January 19, 2025 End: January 19, 2025 Dr. Joel Joseph MD Attending Provider Active Start: January 19, 2025 End: January 19, 2025 Dr. Joel Joseph MD Referring Provider Active Start: January 19, 2025 End: January 19, 2025 INFORMATION SOURCE (unrecogn ized section and content) DATE CREATED AUTHOR 05/06/2025 [facility] FOR RECORDS PERTAINING TO PATIENTS WHO ARE OR HAVE BEEN ENROLLED IN A CHEMICAL DEPENDENCY/SUBSTANCEABUSE PROGRAM, SOME INFORMATION MAY BE OMITTED. This clinical summary was aggregated from multiple sources. Caution should be exercised in using it in the provision of clinical care. This summary normalizes information from multiple sources, and as a consequence, information in this document may materially change the coding, format and clinical context of patient data. In addition, data may be omitted in some cases. CLINICAL DECISIONS SHOULD BE BASED ON THE PRIMARY CLINICAL RECORDS. [facility]. provides no warranty or guarantee of the accuracy or completeness of information in this document.
== END | disposition home or self-care (01) ==
LOC: OPBI 11:52
PROVIDERS: Referring Provider Obstetrics & Gynecology; Visit Provider Obstetrics & Gynecology
DX: Z12.31 Encounter for screening mammogram for malignant neoplasm of breast (principal)
CPT/HCPCS: 77063; 77067